=== PATIENT | male | born 1950 | race Caucasian/White ===

== ENCOUNTER → 2018-10-30 14:03 | Outpatient (CLI) | payer MEDICARE, SELFPAY ==
--- NOTE | 2018-10-30 14:16 | DI.US.S_ITS ---
PROCEDURE: US ABD AORTA ANEURYSM SCREEN INDICATIONS: SCREENING TECHNIQUE: Real time scanning was performed of the aorta and iliac arteries, with image documentation. COMPARISON: None. FINDINGS: Aorta: Proximal aortic not well-seen. Mid-aorta measures 1.9 cm. Distal aortic diameter is 1.7 cm. Iliac arteries: Right common iliac artery measures 1.2 cm. Left common iliac artery measures 1.4 cm. IMPRESSION: Proximal aorta suboptimally visualized otherwise no abdominal aortic aneurysm. Dictated by: Rory Magaña [facility] Interpreted: Stevie Patel MD on 10/30/2018 at 15:43 Approved by: Stevie Patel M.D. on 10/30/2018 at 16:30
== END ==
PROVIDERS: PCP Student in an Organized Health Care Education/Training Program; Visit Provider Student in an Organized Health Care Education/Training Program
DX: Z13.6 Encounter for screening for cardiovascular disorders (principal); Z87.891 Personal history of nicotine dependence
CPT/HCPCS: 76706

== ENCOUNTER 2018-12-25 12:53 | Day surgery (SDC) | payer MEDICARE, SELFPAY ==
[2018-12-25] MEDS: SODIUM CHLORIDE 0.9% 1,000 ML 150 ML IV (13:29)
[2018-12-25 13:33] VITALS: BP 147/86; PULSE 77; RESP 15; TEMP 36.5; O2SAT 95; BMI 33.0
--- NOTE | 2018-12-25 14:32 | PM.HP.1 ---
History of Present Illness Date Patient Seen: 12/25/18 Time Patient Seen: 14:32 Chief complaint: [id number] SCREENING COLONOSCOPY Narrative: Pleasant 68-year-old gentleman who is here for his 1st screening colonoscopy. He denies any problems or symptoms related to the function of his GI tract. He reports he needs a colonoscopy as part of health maintenance program. Patient History Medical History Herniated disc (Resolved ~04/2007) Kidney stones (Resolved ~2008) Surgical History No history of previous surgery (Acute) Family History Mother Cancer Social History household members: significant other Smoking Status: Former smoker Family & Social History Family History Mother Cancer Social History: household members significant other Tobacco & Substance use: Smoking Status Former smoker Meds Home Medications Medication Instructions Recorded Confirmed Type No Known Home Medications 12/25/18 12/25/18 History Allergies Allergy/AdvReac Type Severity Reaction Status Date / Time codeine [CODEINE] Allergy Mild NAUSEA, Verified 10/09/18 13:05 VOMITTING Review of Systems Review of Systems All systems reviewed & are unremarkable except as noted in HPI and below Exam Vital Signs (past 8 hours): - 12/25/18 13:33 Temperature 97.7 F Pulse Rate 77 Respiratory Rate 15 Blood Pressure 147/86 H Pulse Oximetry 95 Oxygen Delivery Method Room Air Narrative Exam Narrative: Well-nourished well-developed gentleman in no distress HEENT: Normocephalic and atraumatic, pupils equal round reactive to light accommodation with anicteric sclera Lungs: Clear bilaterally Heart: Regular rate and rhythm Abdomen: Soft, nontender, active bowel sounds Extremities: Warm well perfused Assessment & Plan Assessment Narrative: 68-year-old man here for his 1st screening colonoscopy. His only significant health risks today is obesity with a BMI of 33. Plan Narrative: We discussed the risks and benefits of the procedure the patient expressed a desire to completed today.
[2018-12-25] MEDS: MIDAZOLAM 5 MG/5 ML VIAL IV (14:44)
[2018-12-25] MEDS: fentaNYL 250 MCG/5 ML INJ IV (14:45)
--- NOTE | 2018-12-25 15:04 | P.OP_ITS ---
Operative Date/Time/Diagnoses Date of procedure: 12/25/18 Time of procedure: 15:03 Pre-op diagnosis: Screening Post-op diagnosis: same Procedure & Clinicians Procedure: Colonoscopy to the cecum Same procedure as scheduled: Yes Indications: No prior colonoscopy Surgeon: Sandra Russo Click Yes if Unassisted: Yes Anesthesia Type: Sedation (Versed 4 mg; fentanyl 150 mcg) Operative Notes Findings: 1. Excellent prep 2. No polyps or mass lesions 3. No AV malformations 4. Mildly tortuous transverse colon 5. Minimal diverticulosis limited to the sigmoid region 6. Grade 2 internal hemorrhoids Closure Type: not applicable Specimen(s): none sent Procedure in detail: After obtaining informed consent, the patient was brought to the GI suite and placed in the left lateral decubitus position on the examination table. After placement of appropriate monitors, the patient was given incremental doses of Versed and Fentanyl until an appropriate level of sedation was achieved. A time out was held per SCOAP protocol. A digital rectal examination was performed and did not reveal any masses or obst ructing lesions. The colonoscope was gently passed into the patient's anus and the entire colon navigated to the level of the cecum with minimal difficulty. Once in the cecum, the scope was withdrawn being sure to go before and beyond all mucosal folds and prominences and get an excellent examination. The findings are noted above. At the level of the rectal vault, the scope was retroflexed and the internal anal canal was examined. The scope was straightened and air aspirated from the colon. The instrument was removed from the patient's body and the procedure was concluded. The patient was allowed to awaken from sedation without difficulty and taken to the post-anesthesia care unit in good condition. Total sedation time was 22 min Total colonoscopy withdrawal time was 9 min 27 sec Complications: none Condition: stable Disposition: PACU Plan for aftercare: 1. Discharge to home 2. Plan for next colonoscopy in 10 years or as clinically indicated
[2018-12-25 15:10] VITALS: BP 119/70; PULSE 65; RESP 10; TEMP 36.2; O2SAT 92
--- NOTE | 2018-12-25 15:22 | SUR.PHASEII ---
Pt by passed PACU, sleepy, easily awakens. Allowed to sleep. Friend brought in. Pt now more awake. Drank juice, talking with friend at bedside.
[2018-12-25 15:35] VITALS: BP 135/74; PULSE 69; RESP 16; TEMP 36.6; O2SAT 96
== END 2018-12-25 15:43 ==
LOC: ENDO 12:53
PROVIDERS: PCP Student in an Organized Health Care Education/Training Program; Visit Provider Surgery
PROC: 0DJD8ZZ Inspection of Lower Intestinal Tract, Via Natural or Artificial Opening Endoscopic (ICD-10-PCS; CPT 45378; principal; 2018-12-25 15:00)
DX: Z12.11 Encounter for screening for malignant neoplasm of colon (principal); K57.30 Diverticulosis of large intestine without perforation or abscess without bleeding; K64.1 Second degree hemorrhoids; Z87.891 Personal history of nicotine dependence
CPT/HCPCS: G0121; 99152; J2250; J3010

== ENCOUNTER → 2019-06-24 10:26 | Outpatient (CLI) | payer MEDICARE, SELFPAY ==
--- NOTE | 2019-06-24 10:28 | DI.RAD.S_ITS ---
PROCEDURE: XR SCAPULA LT INDICATIONS: left scapula pain TECHNIQUE: 2 views of the scapula were acquired. COMPARISON: [facility], CR, XR SHOULDER LT MIN 2V, 06/24/2019, 10:28. FINDINGS: Bones: No fractures or dislocations. No suspicious bony lesions. Visualized ribs appear intact. Soft tissues: Overlying soft tissues appear normal. 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 Dictated by: Bradley Paez M.D. on 06/24/2019 at 11:38 Approved by: Bradley Paez M.D. on 06/24/2019 at 11:39
--- NOTE | 2019-06-24 10:28 | DI.RAD.S_ITS ---
PROCEDURE: XR SHOULDER LT MIN 2V INDICATIONS: left shoulder pain TECHNIQUE: 3 views of the shoulder were acquired. COMPARISON: [facility], , SHOULDER MINIMUM 2VIEW RIGHT, 07/30/2007, 15:43. FINDINGS: Bones: No fractures or dislocations. No suspicious bony lesions. Visualized ribs appear intact. Soft tissues: No suspicious soft tissue calcifications. IMPRESSION: Mild arthritic change at the a.c. joint, no trauma found. Dictated by: Bradley Paez M.D. on 06/24/2019 at 11:37 Approved by: Bradley Paez M.D. on 06/24/2019 at 11:38
== END ==
PROVIDERS: PCP Student in an Organized Health Care Education/Training Program; Visit Provider Nurse Practitioner
DX: M25.512 Pain in left shoulder (principal); M19.012 Primary osteoarthritis, left shoulder; M89.8X1 Other specified disorders of bone, shoulder
CPT/HCPCS: 73010; 73030

== ENCOUNTER → 2019-07-04 13:33 | Outpatient (CLI) | payer MEDICARE, SELFPAY ==
--- NOTE | 2019-07-04 13:37 | DI.MRI.S_ITS ---
PROCEDURE: MR SHOULDER LT WO CON INDICATIONS: left shoulder pain with decreased range of motion TECHNIQUE: Noncontrast oblique coronal T2 fast spin echo with fat saturation, oblique sagittal T1 spin echo and T2 fast spin echo with fat saturation, axial T1 spin echo and T2 fast spin echo with fat saturation through the shoulder. COMPARISON: None. FINDINGS: Image quality: Excellent. Rotator cuff: The supraspinatus, infraspinatus, and subscapularis tendons appear intact throughout. Sagittal images demonstrate no muscle atrophy. Bones and bursae: No bone marrow contusions or fractures. There is moderately severe acromioclavicular joint degeneration with fibrous and osseous hypertrophy projecting inferiorly to impinge upon the normal course of the supraspinatus tendon. A full-thickness tear involves the lateral supraspinatus tendon is seen centered on series 11 image 13. This is partially retracted. The estimated retraction from anatomic alignment is 1.0 cm. The acromion demonstrates conventional anatomy, without an os acromiale. No pathologic subacromial-subdeltoid or subcoracoid bursal fluid is present. Capsule and soft tissues: In the absence of intra-articular contrast, the labrum and glenohumeral ligaments appear intact. The long head of the biceps tendon demonstrates normal location and morphology. The rotator interval appears normal, without fibrosis. The coracohumeral ligament is normal in thickness. There is a small to moderate joint effusion associated with the degenerative changes and rotator cuff tear. IMPRESSION: Full thickness supraspinatus rotator cuff tear is present laterally, with associated joint effusion and partial retraction of the tendon from anatomic alignment medially. No intra-articular loose body is seen. Moderately severe a.c. joint osteoarthritis contributes to chronic impingement against the supraspinatus tendon from fibrous and osseous hypertrophy related to the chronically degenerated a.c. joint. Mild glenohumeral joint osteoarthritis is incidentally noted. Dictated by: Bradley Paez M.D. on 07/04/2019 at 16:38 Approved by: Bradley Paez M.D. on 07/04/2019 at 16:43
== END ==
PROVIDERS: Family Provider Student in an Organized Health Care Education/Training Program; PCP Student in an Organized Health Care Education/Training Program; Visit Provider Nurse Practitioner
DX: M89.8X1 Other specified disorders of bone, shoulder (principal); M25.512 Pain in left shoulder
CPT/HCPCS: 73221

== ENCOUNTER → 2021-05-19 15:07 | Outpatient (CLI) | payer MEDICARE, SELFPAY ==
--- NOTE | 2021-05-19 15:08 | DI.RAD.S_ITS ---
PROCEDURE: XR FOOT LT 2V INDICATIONS: Left heel pain. R/o spur TECHNIQUE: 2 views of the foot were acquired. COMPARISON: None. FINDINGS: Bones: No acute fractures or dislocations. No suspicious bony lesions. Mild degenerative changes are seen in the 1st metatarsophalangeal joint and throughout the interphalangeal joints of the toes. Small plantar and posterior calcaneal enthesophytes are present. Mild irregular appearance of the medial sesamoid may be secondary to prior trauma, and degenerative changes, and/or congenital variation. Soft tissues: No suspicious soft tissue calcification. IMPRESSION: 1. No acute osseous abnormality. Small plantar and posterior calcaneal enthesophytes. Findings may be further evaluated with MRI if there is suspicion for a soft tissue injury. 2. Mild scattered degenerative changes in the toes and the 1st metatarsophalangeal joint. Dictated by: Niall Beckham M.D. on 05/19/2021 at 16:27 Approved by: Niall Beckham M.D. on 05/19/2021 at 16:29
== END ==
PROVIDERS: Family Provider Student in an Organized Health Care Education/Training Program; PCP Student in an Organized Health Care Education/Training Program; Referring Provider Student in an Organized Health Care Education/Training Program; Visit Provider Student in an Organized Health Care Education/Training Program
DX: M79.672 Pain in left foot (principal); M77.32 Calcaneal spur, left foot
CPT/HCPCS: 73620

== ENCOUNTER 2021-05-21 07:13 | Emergency (ER) | payer MEDICARE, SELFPAY ==
[2021-05-21 07:20] VITALS: BP 169/82; PULSE 76; RESP 18; TEMP 36.6; O2SAT 95
--- NOTE | 2021-05-21 07:56 | ED.EPISTAXIS ---
HPI - Epistaxis General Chief complaint: Nasal Problem Stated complaint: Bloody nose since Monday Time Seen by Provider: 05/21/21 07:55 Source: patient Mode of arrival: Ambulatory Limitations: no limitations History of Present Illness HPI Narrative: Patient is a 70-year-old who presents with epistaxis. He has had multiple episodes of epistaxis this week. In fact he was at doctor [facility]iga [facility] office yesterday where he had a chemical cauterization. He said it started bleeding again last evening and this morning. He said Dr. zuñiga this office was not open until 8:00 a.m. and so he came here. He was previously seen at [facility] twice this week for the same. He is not on any anti-platelet or anticoagulation medication. He denies any dizziness lightheadedness or shortness of breath with exertion. Related Data Home Medications Medication Instructions Recorded Confirmed meloxicam 7.5 mg tablet 7.5 mg PO BID tab 04/15/21 05/19/21 Allergies Allergy/AdvReac Type Severity Reaction Status Date / Time codeine [CODEINE] Allergy Mild NAUSEA, Verified 05/19/21 14:36 VOMITTING Review of Systems Review of Systems Narrative: GENERAL: Denies chills,fever HEENT: See HPI RESPIRATORY: Denies dyspnea, cough, wheezing CARDIOVASCULAR: Denies chest pain, palpitations GASTROINTESTINAL: Denies nausea, vomiting MUSCULOSKELETAL: Denies extremity pain, injury SKIN: No rash, no laceration, no pruritus NEUROLOGIC: Denies weakness, dizziness, headache, numbness 8 point review of systems is negative except for those stated above and HPI Patient History Medical History (Updated 05/21/21 @ 11:04 by Arminda Mccullough DO) Herniated disc (~04/2007) Kidney stones (~2008) Surgical History No history of previous surgery Family History Mother Cancer Social History household members: significant other Smoking Status: Former smoker Smoking Status: Former smoker alcohol intake frequency: a few times a month Substance Use Type: does not use Exam Initial Vital Signs Initial Vital Signs: Vital Signs Temperature 98 F 05/21/21 07:20 Pulse Rate 76 05/21/21 07:20 Respiratory Rate 18 05/21/21 07:20 Blood Pressure 169/82 H 05/21/21 07:20 Pulse Oximetry 95 05/21/21 07:20 GENERAL: Well-appearing, well-nourished and in no acute distress. NOSE: No active bleeding at this time packing placed in the left nare which is saturating CARDIOVASCULAR: peripheral pulses in tact, cap refill <2 sec RESPIRATORY: No respiratory distress, speaks in full sentences without difficulty EXTREMITIES: Normal range of motion, no clubbing or edema. Neurovascularly intact NEUROLOGICAL: Cranial nerves II through XII grossly intact. Normal gait and speech. SKIN: Warm, dry, no petechiae, no rashes or lesions. Course Vital Signs Vital signs: Vital Signs - 8 hr 05/21/21 07:20 05/21/21 09:21 Temperature 98 F Pulse Rate 76 62 Respiratory Rate 18 18 Blood Pressure 169/82 H 167/86 H Pulse Oximetry 95 96 MDM - Epistaxis MDM Narrative Medical decision making narrative: 8:45 a.m. I spoke with Dr. Lopez of on-call ENT who recommends patient be seen in the office. Arrangements have been made his appointments afternoon 1:45. 5 currently epistaxis is controlled he is not having any active bleeding at this time. Discharge Plan Departure Patient Disposition: Home Clinical Impression: Epistaxis Instructions: DI for Nosebleed Activity Restrictions/Additional Instructions: *You have been diagnosed with epistaxis *What to do: At this time is recommended that he follow up with ENT today this afternoon. Dr. Polanco is the physician. Please keep packing in and follow previous directions. Use nasal clip as needed may also try an ice pack as well *Continue to take medications as directed *Follow up with your primary care provider See Dr. Polanco this afternoon at 1:45 p.m. [address] [facility] *Return to ER if you should have increasing bleeding, dizziness, lightheadedness or any new, worsening or concerning symptoms Prescriptions: No Action meloxicam 7.5 mg tablet 7.5 mg PO BID RF: 0 Referrals: Jay Keyes MD [Primary Care Provider] -
[2021-05-21 09:21] VITALS: BP 167/86; PULSE 62; RESP 18; O2SAT 96
== END 2021-05-21 09:21 | disposition home or self-care (01) ==
PROVIDERS: Emergency Provider Emergency Medicine; Family Provider Student in an Organized Health Care Education/Training Program; PCP Student in an Organized Health Care Education/Training Program
DX: R04.0 Epistaxis (principal)
CPT/HCPCS: 99281

== ENCOUNTER → 2022-12-07 15:24 | Outpatient (CLI) | payer MEDICARE, SELFPAY ==
[2022-12-07 16:28] LABS: Hemoglobin A1C% w Est Avg Glu 5.6 % (4.0-6.0)
[2022-12-07 16:30] LABS: Add Manual Diff / Slide Review NO; Basophils Absolute Auto 100 /uL (0-100); Basophils Percent Auto 1.3 % (0-2); Eosinophils Absolute Auto 200 /uL (0-450); Eosinophils Percent Auto 3.4 % (2-4); Hematocrit 38.7 % (41-53); Lymphocytes Absolute Auto 1600 /uL (1100-4500); Lymphocytes Percent Auto 33.2 % (25-40); Mean Corpuscular HGB Conc 33.7 % (30-36); Mean Corpuscular Hemoglobin 26.8 PG (26-34); Mean Corpuscular Volume 79.7 fL (80-100); Monocytes Absolute Auto 500 /uL (0-900); Monocytes Percent Auto 10.7 % (3-14); Neutrophils Absolute Auto 2400 /uL (1500-7000); Neutrophils Percent Auto 51.4 % (50-75); Platelet Count 168 X10^3/uL (150-400); Red Blood Cell Count 4.86 X10^6/uL (4.5-5.9); Red Cell Distribution Width 13.2 % (11.6-14.8); White Blood Cell Count 4.8 X10^3/uL (4.5-11.0)
[2022-12-07 16:38] LABS: D Dimer 500 ng/ml (<500)
[2022-12-07 16:44] LABS: Alanine Aminotransferase 56 IU/L (<50); Albumin 4.2 g/dL (3.5-5.0); Albumin Globulin Ratio 1.4 (1.0-2.8); Alkaline Phosphatase 99 U/L (38-126); Aspartate Aminotransferase 37 IU/L (17-59); BUN Creatinine Ratio 25.6 (6-22); Bilirubin Total 0.5 mg/dL (0.2-1.3); Blood Urea Nitrogen 22 mg/dL (9-20); Carbon Dioxide 27 mmol/L (22-32); Chloride 103 mmol/L (98-107); Cholesterol 176 mg/dL (140-199); Estimated Glomerular Filt Rate > 60 mL/min (>60); Globulin 2.9 g/dL (1.7-4.1); Glucose 89 mg/dL (80-110); HDL Cholesterol 55 mg/dL (40-60); HEMOLYSIS < 15 (0-50); LDL Cholesterol Calculated 105 mg/dL (<100); Sodium 138 mmol/L (137-145); Total Protein 7.1 g/dL (6.3-8.2); Triglycerides 80 mg/dL (35-150)
[2022-12-07 17:10] LABS: TSH w/ Reflex to FT4 0.94 uIU/mL (0.47-4.68)
== END ==
PROVIDERS: Family Provider Student in an Organized Health Care Education/Training Program; PCP Student in an Organized Health Care Education/Training Program; Referring Provider Family Medicine; Visit Provider Family Medicine
DX: I10 Essential (primary) hypertension (principal); M79.89 Other specified soft tissue disorders; M79.601 Pain in right arm
CPT/HCPCS: 36415; 80053; 80061; 83036; 84443; 85025; 85379

== ENCOUNTER → 2023-01-23 13:20 | Outpatient (CLI) | payer MEDICARE, SELFPAY | PROVIDERS: Family Provider Student in an Organized Health Care Education/Training Program; PCP Student in an Organized Health Care Education/Training Program; Referring Provider Student in an Organized Health Care Education/Training Program; Visit Provider Student in an Organized Health Care Education/Training Program | DX: R00.2 Palpitations (principal) | CPT/HCPCS: 93242 ==

== ENCOUNTER → 2023-10-24 11:36 | Outpatient (CLI) | payer MEDICARE, SELFPAY ==
[2023-10-24 12:48] LABS: Add Manual Diff / Slide Review NO; Basophils Absolute Auto 100 /uL (0-100); Basophils Percent Auto 0.8 % (0-2); Eosinophils Absolute Auto 100 /uL (0-450); Eosinophils Percent Auto 2.2 % (2-4); Hemoglobin 13.1 g/dL (13.5-17.5); Lymphocytes Absolute Auto 1300 /uL (1100-4500); Lymphocytes Percent Auto 19.1 % (25-40); Mean Corpuscular HGB Conc 32.6 % (30-36); Mean Corpuscular Hemoglobin 26.2 PG (26-34); Mean Corpuscular Volume 80.2 fL (80-100); Monocytes Absolute Auto 600 /uL (0-900); Monocytes Percent Auto 9.7 % (3-14); Neutrophils Absolute Auto 4500 /uL (1500-7000); Neutrophils Percent Auto 68.2 % (50-75); Platelet Count 170 X10^3/uL (150-400); Red Blood Cell Count 4.98 X10^6/uL (4.5-5.9); Red Cell Distribution Width 16.4 % (11.6-14.8); White Blood Cell Count 6.6 X10^3/uL (4.5-11.0)
[2023-10-24 13:01] LABS: Hemoglobin A1C% w Est Avg Glu 5.8 % (4.0-6.0)
[2023-10-24 13:05] LABS: Alanine Aminotransferase 55 IU/L (<50); Albumin 3.6 g/dL (3.5-5.0); Albumin Globulin Ratio 1.4 (1.0-2.8); Alkaline Phosphatase 102 U/L (38-126); Aspartate Aminotransferase 45 IU/L (17-59); BUN Creatinine Ratio 22.1 (6-22); Bilirubin Total 1.2 mg/dL (0.2-1.3); Blood Urea Nitrogen 21 mg/dL (9-20); Calcium 9.5 mg/dL (8.4-10.2); Carbon Dioxide 28 mmol/L (22-32); Chloride 104 mmol/L (98-107); Estimated Glomerular Filt Rate > 60 mL/min (>60); Globulin 2.5 g/dL (1.7-4.1); Glucose 113 mg/dL (80-110); HEMOLYSIS < 15 (0-50); Potassium 4.5 mmol/L (3.4-5.1); Sodium 137 mmol/L (137-145); Total Protein 6.1 g/dL (6.3-8.2)
[2023-10-26 08:01] LABS: PSA, Total 0.2 ng/mL (0.0-4.0)
== END ==
PROVIDERS: Family Provider Student in an Organized Health Care Education/Training Program; PCP Family Medicine; Referring Provider Family Medicine; Visit Provider Family Medicine
DX: I10 Essential (primary) hypertension (principal); I48.0 Paroxysmal atrial fibrillation; R60.0 Localized edema; R35.0 Frequency of micturition; E66.9 Obesity, unspecified
CPT/HCPCS: 36415; 80053; 83036; 84153; 84154; 85025

== ENCOUNTER → 2023-11-03 11:01 | Outpatient (CLI) | payer MEDICARE, SELFPAY ==
[2023-11-03 12:11] LABS: HEMOLYSIS < 15 (0-50); Iron 64 ug/dL (49-181)
[2023-11-03 12:22] LABS: Percent Iron Saturation 21 % (20-50); Total Iron Binding Capacity 311 ug/dL (261-462); Transferrin 259 mg/dL (206-381)
[2023-11-03 12:43] LABS: Ferritin 96 ng/mL (18-464)
== END ==
PROVIDERS: Family Provider Student in an Organized Health Care Education/Training Program; PCP Family Medicine; Referring Provider Family Medicine; Visit Provider Family Medicine
DX: Z13.0 Encounter for screening for diseases of the blood and blood-forming organs and certain disorders involving the immune mechanism (principal)
CPT/HCPCS: 36415; 82728; 83540; 83550

== ENCOUNTER → 2025-08-29 17:26 | Outpatient (CLI) | payer MEDICARE, SELFPAY ==
[2025-08-29 18:03] LABS: Albumin 4.4 g/dL (3.5-5.0); Blood Urea Nitrogen 31 mg/dL (9-20); Calcium 9.6 mg/dL (8.4-10.2); Carbon Dioxide 21 mmol/L (22-32); Chloride 107 mmol/L (98-107); Estimated Glomerular Filt Rate 58 mL/min (>60); Glucose 92 mg/dL (70-99); HEMOLYSIS < 15 (0-50); Phosphorous 4.0 mg/dL (2.3-3.7); Potassium 4.8 mmol/L (3.4-5.1); Sodium 138 mmol/L (137-145)
[2025-08-29 18:35] LABS: TSH w/ Reflex to FT4 1.53 uIU/mL (0.47-4.68)
== END ==
PROVIDERS: PCP Family Medicine; Referring Provider Family Medicine; Visit Provider Family Medicine
DX: Z12.5 Encounter for screening for malignant neoplasm of prostate (principal); Z79.899 Other long term (current) drug therapy; I48.0 Paroxysmal atrial fibrillation; R94.4 Abnormal results of kidney function studies; E87.5 Hyperkalemia
CPT/HCPCS: 36415; 80069; 84443; G0103

== ENCOUNTER → 2025-08-30 08:58 | Outpatient (CLI) | payer MEDICARE, SELFPAY ==
[2025-08-30 10:20] LABS: Appearance Urine UA SL CLOUDY; Bilirubin Urine UA NEGATIVE (NEGATIVE); Color Urine UA YELLOW; Glucose Urine UA NEGATIVE (Negative); Ketones Urine UA NEGATIVE (NEGATIVE); Leukocyte Esterase Urine UA NEGATIVE (NEGATIVE); Nitrite Urine UA NEGATIVE (Negative); Occult Blood Urine UA 3+ (Negative); Protein Urine UA NEGATIVE (Negative); Specific Gravity Urine UA 1.025 (1.000-1.035); Urobilinogen Urine UA 0.2 E.U./dL (0.2); pH Urine UA 5.5 (4.5-8.0)
[2025-08-30 10:31] LABS: Culture Indicated Urine Cult Not Indicated
== END ==
PROVIDERS: PCP Family Medicine; Referring Provider Family Medicine; Visit Provider Family Medicine
DX: R94.4 Abnormal results of kidney function studies (principal); Z79.899 Other long term (current) drug therapy
CPT/HCPCS: 81001

== ENCOUNTER → 2025-09-03 15:03 | Outpatient (CLI) | payer MEDICARE, SELFPAY ==
--- NOTE | 2025-09-03 15:04 | DI.CT.S_ITS ---
PROCEDURE: CT IVP A/P W/WO INDICATIONS: hydronephrosis TECHNIQUE: Optional 5 mm thick noncontrast images acquired from the diaphragm to the symphysis pubis. After the administration of intravenous contrast, 5 mm thick images acquired from the diaphragm to the symphysis pubis after a 10-minute delay. 2 mm thick coronal and sagittal reformats were then performed of the kidneys and ureters. For radiation dose reduction, the following was used: automated exposure control, adjustment of mA and/or kV according to patient size. COMPARISON: [facility], CT, CT ANGIO CHEST, 08/26/2025, 9:43. FINDINGS: Image quality: Diagnostic. Kidneys and Ureters: Severe right hydronephrosis. There is a stone within the proximal right ureter measuring 9 mm resulting in obstruction. Cortical thinning on the right. Nonobstructing left renal stone measuring 9 mm. Left renal simple appearing cyst. Some contrast is layering within the obstructed collecting system on the right, no contrast passes the obstructing stone. No perinephric fat stranding. There is normal bilateral renal enhancement. Renal calyces appear normal in morphology when filled with contrast. Opacified portions of both ureters demonstrate normal caliber Bladder: Bladder wall thickness is normal. No calcified bladder stones. OTHER: Lower chest: Lung bases are clear. Cardiomegaly. Coronary artery calcifications. Small hiatal hernia. Liver: No solid mass. Gallbladder: No radiopaque gallstones or wall thickening. Biliary ducts: No biliary dilation. Pancreas: No ductal dilation. Spleen: Size is within normal limits. Adrenal Glands: No adrenal nodules. Stomach and Bowel: Normal colonic caliber, without significant wall thickening. Prominent stool burden within the proximal colon. Normal appendix. Peritoneum: No abnormal intraperitoneal fluid. No free air. Ventral Wall: No hernia. Abdominal Nodes: No retroperitoneal or mesenteric adenopathy by size criteria. Vessels: Aorta and inferior vena cava are normal in size. Atherosclerotic vascular calcifications. PELVIS: Pelvic Organs: Unremarkable. Pelvic Nodes: No enlarged lymph nodes. Miscellaneous: Small bilateral fat containing inguinal hernias are seen. Bones: No aggressive osseous abnormality. Degenerative changes of the spine. Decreased osseous mineralization. IMPRESSION: 1. Severe right hydronephrosis with 9 mm obstructing stone in the proximal right ureter. There is associated cortical thinning suggesting chronic etiology. 2. Opacified portions of the collecting system demonstrate no filling defects. 3. Nonobstructing 9 mm stone in the left kidney. 4. Please see above for additional findings. Dictated by: Jasen Garza M.D. on 09/03/2025 at 16:11 Approved by: Jasen Garza M.D. on 09/03/2025 at 16:20
== END ==
LOC: CT 15:03
PROVIDERS: PCP Family Medicine; Referring Provider Family Medicine; Visit Provider Family Medicine
DX: R94.4 Abnormal results of kidney function studies (principal); N13.2 Hydronephrosis with renal and ureteral calculous obstruction; I51.7 Cardiomegaly; I25.10 Atherosclerotic heart disease of native coronary artery without angina pectoris; K44.9 Diaphragmatic hernia without obstruction or gangrene; K40.20 Bilateral inguinal hernia, without obstruction or gangrene, not specified as recurrent
CPT/HCPCS: 74178; Q9967